=== PATIENT | female | born 1960 | race Caucasian/White ===

== ENCOUNTER 2023-12-23 05:55 | Day surgery (SDC) | payer BC, SELFPAY ==
[2023-12-23] VITALS (17 sets, daily range): BP systolic 123–156; BP diastolic 73–91; BMI 45.3
[2023-12-23] MEDS: NSS 500 IV (06:50)
--- NOTE | 2023-12-23 10:15 | ITS.CL.PACE ---
[facility] - Pacemaker Implant
Pacemaker Implant
Procedure Report:
LEADLESS PACEMAKER IMPLANTATION
DATE: December 23, 2023
Primary Care Provider:
Dr. Kiana Navarrete
Primary curer acid drum:
Dr. Sukumar Smith
Dr. Edvin Santos
INDICATION:
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 There was office discussion regarding pacing indication and transvenous pacing versus Leadless pacing. With shared decision making which involve the patient as well as
her primary curer acid drum and with me at our office visit, the patient has decided to move forward with implantation of Micra AV Leadless pacemaker with the understanding that Micra AV can provide 70 to 80% AV synchrony with atrial sensing and
ventricular pacing, 100% AV synchrony should not be expected and there is no atrial pacing support.
apple peeler operator: Dr Art Gautam
PROCEDURE:
Conscious sedation via the anesthesia department.
Femoral intravenous access is obtained. Right femoral venous access initially with an 8 Vietnamese sheath progressively dilated upwards to allow placement of the Medtronic Micra 27 Vietnamese introducer venous sheath.
The Medtronic Micra delivery system (deflectable catheter with Micra device) was then introduced via the introducer/sheath into the RA. The sheath was then withdrawn to the level of the IVC. Using multiple fluoroscopic views, the delivery system was
then guided across the TV into the RV. A basal-mid septal location was targeted. Angiogram in both DEL ROSARIO (DEL ROSARIO space sign present) and INDIAN view confirmed septal location and the device was deployed. Testing demonstrated adequate and stable
parameters. Pull and hold test was successful and repeat testing demonstrated stable parameters. The tether was removed and repeat testing demonstrated stable parameters. The introducer / sheath were removed.
Figure of 8 stitch was used to close the venous access sites.
DEVICE:
Medtronic MICRA AVR system [id number], SN: [id number]
Capture threshold: 0.5 V @0.24 ms
R wave sensing 20 mV
Pacing impedance: 809 ohms
Christian pacing mode: VDDR 60 - 130 ppm
COMPLICATIONS: None
SUMMARY / RECOMMENDATIONS:
Implantation of atrial sensing, ventricular pacing leadless pacing system
--- NOTE | 2023-12-23 14:53 | W.PN.UPDATE ---
Update Note
Progress Note Update
63 yo WF s/p MICRA PPM (same day). She feels good, no cp, sob, michaela diet, voiding, R fem site c/d/i no HT, soft, EKG SR 1deg AVB, f/u echo with no effusion and stable MICRA. Activity restrictions reviewed. She will f/u Dr. Smith in 1 mo. She is for
d/c home after 330p.
== END 2023-12-23 15:40 | disposition home or self-care (01) ==
LOC: CATH 05:55
PROVIDERS: ATTENDING PHYSICIAN Internal Medicine Cardiovascular Disease; FAMILY PHYSICIAN Family Medicine
DX: I44.2 Atrioventricular block, complete (principal); R00.1 Bradycardia, unspecified; R55 Syncope and collapse; R06.02 Shortness of breath; I10 Essential (primary) hypertension
CPT/HCPCS: 93308; 33274; 93005; C1769; C1786; C1892; C1894; Q9967